=== PATIENT | male | born 1955 | race African-American/Black ===

== ENCOUNTER 2017-01-04 11:49 | Emergency (ER) | payer MEDICAID ==
[~2017-01-04] VITALS: Ht 180.3 cm; Wt 83.9 kg
[~2017-01-04 11:49] MED LIST: CEPHALEXIN500 MG ORAL; MEDROL DOSEPAK4 MG ORAL; NKM; NORCO 5-325 TA1 EAC1 ORAL
[2017-01-04 12:18] VITALS: BP 118/73
[2017-01-04] MEDS ORDERED: Ketorolac 30mg Inj IM ONE (12:30)
[2017-01-04 14:08] VITALS: BP 118/73
[2017-01-04] MEDS ORDERED: NAPROXEN500 M2 ORAL (15:14)
[2017-01-04] MEDS ORDERED: ROBAXIN-750750 MG PO (15:14)
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
--- NOTE | 2017-01-05 12:30 | Diagnostic Imaging Report ---
Indication: Pain Findings: 3 views of the left shoulder were obtained. Alignment of the left shoulder is normal. No acute fracture is identified. Soft tissues are unremarkable. Impression: Negative left shoulder examination
== END 2017-01-04 14:11 | disposition home or self-care (01) ==
LOC: EMR 13:00
DX: S49.92XA Unspecified injury of left shoulder and upper arm, initial encounter (principal); S46.912A Strain of unspecified muscle, fascia and tendon at shoulder and upper arm level, left arm, initial encounter; Y04.2XXA Assault by strike against or bumped into by another person, initial encounter; Z88.0 Allergy status to penicillin
CPT/HCPCS: 29240; 73030; 96372; 99284; J1885

== ENCOUNTER 2018-02-15 10:47 | Emergency (ER) | payer MEDICAID ==
[~2018-02-15] VITALS: Ht 180.3 cm; Wt 87.1 kg
[~2018-02-15 10:47] MED LIST changes: +NAPROXEN500 M2 ORAL; +ROBAXIN-750750 MG PO
[2018-02-15 10:54] VITALS: BP 138/93
[2018-02-15] MEDS ORDERED: Ketorolac 30mg Inj IM ONE (11:45)
[2018-02-15] MEDS ORDERED: IBUPROFEN600 MG ORAL (11:52)
[2018-02-15] MEDS ORDERED: LYRICA75 M1 ORAL (11:52)
[2018-02-15 11:59] VITALS: BP 138/93
--- NOTE | 2018-02-17 14:59 | Emergency Room Report ---
History of Present Illness General Chief Complaint: Pain Source: Patient Present Illness HPI 62-year-old male presents ED complaining of tingling sensation and pain to his bilateral hands and feet. Has been going on for the last several months. States that he was told by his PMD that he has "sciatic nerve damage". Was prescribed gabapentin the past but states it did not help. Pain is sharp, 8 out of 10, radiating down both arms and legs. Denies any arm or leg weakness. Denies any bowel or bladder incontinence. Denies history of diabetes. No other aggravating relieving factors. Denies any other associated symptoms Allergies: Coded Allergies: PENICILLINS (Unverified Allergy, Unknown, 06/22/14) Patient History Past Medical History: none Past Surgical History: none Pertinent Family History: none Social History: Denies: smoking, alcohol use, drug use Immunizations: UTD Reviewed Nursing Documentation: PMH: Agreed; PSxH: Agreed Nursing Documentation-PMH Past Medical History: No Stated History Review of Systems All Other Systems: negative except mentioned in HPI Physical Exam Vital Signs Date Time Temp Pulse Resp B/P (MAP) Pulse Ox O2 Delivery O2 Flow Rate FiO2 02/15/18 10:49 98.2 84 18 138/93 98 Room Air 98.2 Sp02 EP Interpretation: reviewed, normal General Appearance: no apparent distress, alert, GCS 15, non-toxic Head: normocephalic, atraumatic Eyes: bilateral eye normal inspection, bilateral eye PERRL ENT: hearing grossly normal, normal pharynx, no angioedema, normal voice Neck: full range of motion, supple/symm/no masses Respiratory: chest non-tender, lungs clear, normal breath sounds, speaking full sentences Cardiovascular #1: regular rate, rhythm, no edema Cardiovascular #2: 2+ carotid (R), 2+ carotid (L), 2+ radial (R), 2+ radial (L) , 2+ dorsalis pedis (R), 2+ dorsalis pedis (L) Gastrointestinal: normal bowel sounds, non tender, soft, non-distended, no guarding, no rebound Rectal: deferred Genitourinary: normal inspection, no CVA tenderness Musculoskeletal: back normal, gait/station normal, normal range of motion, non- tender Neurologic: alert, oriented x3, responsive, director [employer] III-XII nml as tested, motor strength/tone normal, sensory intact, cerebellar normal, normal gait, speech normal Psychiatric: judgement/insight normal, memory normal, mood/affect normal, no suicidal/homicidal ideation Reflexes: 3+ bicep (R), 3+ bicep (L), 3+ tricep (R), 3+ tricep (L), 3+ knee (R) , 3+ knee (L) Skin: normal color, no rash, warm/dry, well hydrated Lymphatic: no adenopathy Medical Decision Making Diagnostic Impression: Primary Impression: Peripheral neuropathy Qualified Codes: G62.9 - Polyneuropathy, unspecified ER Course Hospital Course 62-year-old male presents ED complaining of tingling/pain to biateral arms/legs Differential diagnoses include: neuropathy, diabetes, radiculopathy Clinical course Patient placed on stretcher. After initial history, physical exam reveals elderly male in no acute distress. Patient has 5 out of 5 motor strength in both arms and legs. No sensory deficits. Patient's condition is chronic and is been there for many months now. Patient is currently being managed by PMD and has referral to pain management next week. I do not believe there is indication for acute intervention at this time. I did offer patient Toradol injection here which he agreed to Patient states symptoms are improving after Toradol. I offered to provide a prescription for Lyrica as an alternative to the gabapentin. I encouage the importance of his pain management appt as he will likely receive definitive care for his condion there Diagnosis - peripheral neuropathy Stable and discharged to home with prescription for treatment Motrin, Lyrica. Followup with PMD. Return to ED if symptoms recur or worsen Last Vital Signs Date Time Temp Pulse Resp B/P (MAP) Pulse Ox O2 Delivery O2 Flow Rate FiO2 02/15/18 11:59 98.2 18 138/93 98 Room Air 208.8 02/15/18 10:49 84 Status: improved Disposition: HOME, SELF-CARE Condition: Stable Scripts Pregabalin* (LYRICA*) 75 Mg Capsule 75 MG ORAL THREE TIMES A DAY for 10 Days, CAP Prov: Terrell Garcia MD 02/15/18 Ibuprofen* (MOTRIN*) 600 Mg Tablet 600 MG ORAL Q8H PRN for For Pain, #30 TAB 0 Refills Prov: Terrell Garcia MD 02/15/18 Referrals: NOT CHOSEN [facility]/MD,REFERRING Patient Instructions: Peripheral Neuropathy Terrell Garcia MD Feb 17, 2018 14:59
== END 2018-02-15 12:02 | disposition home or self-care (01) ==
LOC: EMR 11:37
DX: G62.9 Polyneuropathy, unspecified (principal); Z88.0 Allergy status to penicillin
CPT/HCPCS: 99283; J1885

== ENCOUNTER 2018-03-09 06:55 | Emergency (ER) | payer MEDICAID ==
[~2018-03-09] VITALS: Ht 180.3 cm; Wt 88.0 kg
[~2018-03-09 06:55] MED LIST changes: +IBUPROFEN600 MG ORAL; +LYRICA75 M1 ORAL
[2018-03-09 07:09] VITALS: BP 124/78
[2018-03-09] MEDS ORDERED: Ketorolac 60mg Inj IM ONE (07:15)
--- NOTE | 2018-03-09 07:33 | Emergency Room Report ---
History of Present Illness General Chief Complaint: Pain Source: Patient Present Illness HPI This patient states has a history of left-sided sciatica. This is a chronic condition. He has undergone MRI of his lumbar spine. Apparently, he is found to have sciatic nerve inflammation. He is scheduled to go to a pain management physician. He states over the past 3 weeks he has had an exacerbation of his left-sided sciatica. He states over the past week this has become more severe and debilitating. He denies weakness. He denies tingling or numbness. He denies loss of bowel or bladder control. He denies recent illness. He denies fever or chills. He has no other complaints. Allergies: Coded Allergies: PENICILLINS (Unverified Allergy, Unknown, 06/22/14) Patient History Past Medical History: none, see triage record, other - sciatica, DDD Social History: Reports: smoking, alcohol use; Denies: drug use Reviewed Nursing Documentation: PMH: Agreed; PSxH: Agreed Nursing Documentation-PMH Past Medical History: No Stated History Review of Systems All Other Systems: negative except mentioned in HPI Physical Exam Vital Signs Date Time Temp Pulse Resp B/P (MAP) Pulse Ox O2 Delivery O2 Flow Rate FiO2 03/09/18 06:59 97.1 75 20 142/94 98 Room Air 97.2 Sp02 EP Interpretation: reviewed, normal General Appearance: no apparent distress, alert, GCS 15, non-toxic Head: normocephalic, atraumatic Eyes: bilateral eye normal inspection, bilateral eye PERRL ENT: hearing grossly normal, normal pharynx, no angioedema, normal voice Neck: full range of motion Respiratory: chest non-tender, lungs clear, normal breath sounds, no respiratory distress, no retraction, no accessory muscle use, speaking full sentences Cardiovascular #1: regular rate, rhythm, no edema Rectal: deferred Musculoskeletal: normal range of motion, other - Sitting on R. buttock, L. leg extended to achieve a more comfortable position. Appears uncomfortable. Neurologic: alert, oriented x3, responsive, motor strength/tone normal, sensory intact, speech normal Psychiatric: judgement/insight normal, memory normal, mood/affect normal, no suicidal/homicidal ideation Skin: normal color, warm/dry, well hydrated Medical Decision Making Diagnostic Impression: Primary Impression: Sciatica of left side ER Course This patient has a clinical presentation consistent with mechanical back pain/ sciatica. There are no red flags on physical exam. The patient denies any concerning features such as trauma, fevers, night sweats, history of malignancy , pain worse at night, IV drug abuse, urinary/fecal incontinence or retention, focal weakness or change in sensation, or refractory pain. Given these pertinent negatives in the history and physical exam an emergent cause of the back pain such as epidural abscess, metastasis to bone, cauda equina syndrome, and fracture is less likely. I also doubt emergent cardiovascular cause of back pain such as aortic dissection a ruptured abdominal aortic aneurysm given patient with equal pulses in all 4 extremities with no diastolic murmur or pulsatile abdominal mass. The patient was counseled that, though unlikely, the possibility of an emergent cause of back pain may still be present and that the patient should return immediately if symptoms persist or worsen. The symptoms are reproducible with movement. Patient had a benign evaluation and neurologic examination. No emergency etiology was identified. Last Vital Signs Date Time Temp Pulse Resp B/P (MAP) Pulse Ox O2 Delivery O2 Flow Rate FiO2 03/09/18 07:09 124/78 03/09/18 06:59 97.1 75 20 98 Room Air 97.2 Status: improved Disposition: HOME, SELF-CARE Condition: Improved Dimple Buckley DO Mar 09, 2018 07:33
[2018-03-09] MEDS ORDERED: IBUPROFEN800 MG ORAL (07:54)
[2018-03-09] MEDS ORDERED: VALIUM5 MG ORAL (07:54)
[2018-03-09] MEDS ORDERED: LIDODERM700 M1 TOPIC (07:54)
[2018-03-09 08:17] VITALS: BP 124/78
== END 2018-03-09 08:17 | disposition home or self-care (01) ==
LOC: EMR 07:55
DX: M54.32 Sciatica, left side (principal); Z88.0 Allergy status to penicillin
CPT/HCPCS: 96372; 99283

== ENCOUNTER 2018-05-07 19:25 | Emergency (ER) | payer MEDICAID ==
[~2018-05-07] VITALS: Ht 180.3 cm; Wt 89.8 kg
[~2018-05-07 19:25] MED LIST changes: +IBUPROFEN800 MG ORAL; +LIDODERM700 M1 TOPIC; +VALIUM5 MG ORAL
--- NOTE | 2018-05-07 20:39 | Emergency Room Report ---
History of Present Illness General Chief Complaint: Skin Rash/Abscess Source: Patient Present Illness HPI 62 YO Male presents to ED c/o erythema, 10/10 in severity tenderness and swelling progressive x 2 weeks in the left axilla. reports now draining. pt. denies fevers or chills. pt. denies hx of previous episodes. pt. states using a " new deodorant". He reports no other lesion, no itching. Pt. states 10/10 in severity tenderness. pt. states he has been running hot water on it during shower. Pt. denies hx of immune compromise. Allergies: Coded Allergies: PENICILLINS (Unverified Allergy, Unknown, 05/07/18) Patient History Past Medical History: see triage record Past Surgical History: none Pertinent Family History: none Reviewed Nursing Documentation: PMH: Agreed; PSxH: Agreed Nursing Documentation-PMH Past Medical History: No Stated History Review of Systems All Other Systems: negative except mentioned in HPI Physical Exam Vital Signs Date Time Temp Pulse Resp B/P (MAP) Pulse Ox O2 Delivery O2 Flow Rate FiO2 05/07/18 19:30 98.5 87 16 149/83 100 Room Air 98.4 Sp02 EP Interpretation: reviewed, normal General Appearance: no apparent distress, alert, GCS 15, non-toxic Head: normocephalic, atraumatic Eyes: bilateral eye normal inspection, bilateral eye PERRL ENT: hearing grossly normal, normal voice Neck: full range of motion Respiratory: lungs clear, normal breath sounds, speaking full sentences Cardiovascular #1: regular rate, rhythm Musculoskeletal: back normal, gait/station normal, normal range of motion, non- tender Neurologic: alert, oriented x3, responsive, motor strength/tone normal, sensory intact, speech normal, grossly normal Psychiatric: judgement/insight normal Skin: warm/dry, well hydrated, other - 2cm localized and indurated are of erythema, tenderness and swelling Lymphatic: no adenopathy - lesion is superficial no deep LAD palpated in axilla area. Medical Decision Making PA Attestation Dr. littlejohn is my supervising Physician whom patient management has been discussed with. Diagnostic Impression: Primary Impression: Axillary abscess ER Course 62 YO Male presents to ED c/o erythema, 10/10 in severity tenderness and swelling progressive x 2 weeks in the left axilla. reports now draining. pt. denies fevers or chills. pt. denies hx of previous episodes. pt. states using a " new deodorant". He reports no other lesion, no itching. Pt. states 10/10 in severity tenderness. pt. states he has been running hot water on it during shower. Pt. denies hx of immune compromise. Ddx considered but are not limited to cellulitis, abscess, cystic acne, necrotizing fasciitis, insect bite just to name a few. Vital signs: are WNL, pt. is afebrile H&PE are most consistent with Abscess of the left axilla. ORDERS: none required at this time, the diagnosis is clinical ED INTERVENTIONS: -Pt. declines I & D, is hesitant about procedure and decided to attempt oral abx on their own. DISCHARGE: At this time pt. is stable for d/c to home. Will provide printed patient care instructions, and any necessary prescriptions. Care plan and follow up instructions have been discussed with the patient prior to discharge. Last Vital Signs Date Time Temp Pulse Resp B/P (MAP) Pulse Ox O2 Delivery O2 Flow Rate FiO2 05/07/18 19:30 98.5 87 16 149/83 100 Room Air 98.4 Disposition: HOME, SELF-CARE Condition: Stable Scripts Ibuprofen* (MOTRIN*) 600 Mg Tablet 600 MG ORAL THREE TIMES A DAY, #30 TAB 0 Refills Prov: Tracy Hoyos 05/07/18 Doxycycline Hyclate* (VIBRAMYCIN*) 100 Mg Capsule 100 MG ORAL EVERY 12 HOURS for 7 Days, #14 CAP 0 Refills Prov: Tracy Hoyos 05/07/18 Patient Instructions: Abscess Additional Instructions: Take medications as directed. Follow up with a Primary Care Provider in 3-5 days, even if your symptoms have resolved. --Please review list of primary care clinics, if you do not already have a primary care provider Return sooner to ED if new symptoms occur, or current symptoms become worse. - Please note that this Emergency Department Report was dictated using [employer]planner internship technology software, occasionally this can lead to erroneous entry secondary to interpretation by the dictation equipment. Tracy Hoyos May 07, 2018 20:39
[2018-05-07] MEDS ORDERED: VIBRAMYCIN100 MG ORAL (20:40)
[2018-05-07] MEDS ORDERED: IBUPROFEN600 MG ORAL (20:40)
[2018-05-07 20:57] VITALS: BP 145/81
== END 2018-05-07 20:57 | disposition home or self-care (01) ==
LOC: EMR 20:36
DX: L02.412 Cutaneous abscess of left axilla (principal)
CPT/HCPCS: 99283